=== PATIENT | male | born 1945 | race Caucasian/White ===

== ENCOUNTER → 2018-03-11 | Outpatient (CLI) | payer MEDICARE | END | disposition home or self-care (01) | LOC: CFH 10:12 | PROVIDERS: ATTEND Nurse Practitioner Family | DX: M19.012 Primary osteoarthritis, left shoulder (principal); M94.212 Chondromalacia, left shoulder; M25.712 Osteophyte, left shoulder; M25.412 Effusion, left shoulder ==

== ENCOUNTER 2019-02-26 21:38 | Inpatient (IN) | payer MEDICARE ==
[~2019-02-26] VITALS: Ht 182.9 cm; Wt 90.8 kg
[2019-02-26 22:26] LABS: BASOPHILS # (AUTO) 0.02 x10^3/uL (0-0.1); BASOPHILS % (AUTO) 0 % (0-1); EOSINOPHILS # (AUTO) 0.08 x10^3/uL (0-0.4); EOSINOPHILS % (AUTO) 1 % (1-7); LYMPHOCYTES # (AUTO) 1.36 x10^3/uL (1-3.4); LYMPHOCYTES % (AUTO) 23 % (22-44); MD NO; MEAN CORPUSCULAR HEMOGLOBIN 32.1 pg (27.5-34.5); MEAN CORPUSCULAR HGB CONC 33.8 g/dL (33.2-36.2); MEAN CORPUSCULAR VOLUME 94.8 fL (81-97); MEAN PLATELET VOLUME 7.2 fL (7.4-10.4); MONOCYTES # (AUTO) 0.58 x10^3/uL (0.2-0.8); MONOCYTES % (AUTO) 10 % (2-9); NEUTROPHILS % (AUTO) 65 % (42-75); PLATELET COUNT 325 x10^3/uL (130-400); RED BLOOD COUNT 4.75 x10^6/uL (4.38-5.82); RED CELL DISTRIBUTION WIDTH 13.3 % (9.4-14.8)
[2019-02-26] MEDS ORDERED: ASPIRIN 81 MG TABLET CHEW ONE (22:30)
[2019-02-26] MEDS ORDERED: ASPIRIN 81 MG TABLET CHEW PO ONE (22:30)
[2019-02-26 22:37] LABS: ALBUMIN 3.6 g/dL (3.4-5.0); ANION GAP 8 mmol/L (5-15); CALCIUM 9.2 mg/dL (8.5-10.1); CHLORIDE 104 mmol/L (98-107)
[2019-02-26 22:41] LABS: TROPONIN I < 0.015 ng/mL (0.000-0.045)
[2019-02-26 22:57] LABS: D-DIMER 0.37 ug/mlFEU (0.00-0.52); INTERNATIONAL NORMALIZED RATIO 0.94 (0.93-1.1); PROTHROMBIN TIME 9.9 Seconds (9.6-11.5)
--- NOTE | 2019-02-26 23:47 | NUR ---
PT RESTING WITH EYES CLOSED. MONITOR IN PLACE.
[2019-02-27] MEDS ORDERED: SODIUM CHLORIDE 0.9% 1,000 ML IV SCH (00:15)
[2019-02-27] MEDS ORDERED: PROMETHAZINE 25 MG/ML, 1ML IM PRN (00:30)
[2019-02-27] MEDS ORDERED: NITROGLYCERIN 0.4 MG BOTTLE (25 TABS) SL PRN (00:30)
[2019-02-27] MEDS ORDERED: OXYcodone IR 5MG TABLET PO PRN (00:30)
[2019-02-27] MEDS ORDERED: ACETAMINOPHEN 325 MG TABLET PO PRN ×2 (00:30→09:30)
[2019-02-27] MEDS ORDERED: ONDANSETRON 2MG/ML, 2ML IVPush PRN (00:30)
[2019-02-27] MEDS ORDERED: POLYETHYLENE GLYCOL 17 GM PACKET PO PRN (00:30)
[2019-02-27] MEDS ORDERED: morphine SULFATE 10 MG/ML, 1ML IVPush PRN (00:30)
[2019-02-27] MEDS ORDERED: DOCUSATE 100 MG CAPSULE PO PRN (00:30)
[2019-02-27] MEDS: HEPARIN 5,000 UNITS/ML, 1ML SQ SCH ×2 (00:30→10:03)
[2019-02-27] MEDS ORDERED: ONDANSETRON ODT 4 MG PO PRN (00:30)
[2019-02-27] MEDS ORDERED: hydrALAzine 20 MG/ML, 1ML IVPush PRN (00:30)
[2019-02-27] MEDS ORDERED: BISACODYL 10 MG SUPP PR PRN (00:30)
[2019-02-27 01:23] LABS: FREE T4 (FREE THYROXINE) 0.97 ng/dL (0.76-1.46); TROPONIN I < 0.015 ng/mL (0.000-0.045)
--- NOTE | 2019-02-27 01:37 | NUR ---
PT TRANSFERED INTO A HOSPITAL BED FOR PT COMFORT. PT RESTING IN BED WITH NO NEEDS OR WANTS AT THIS TIME.
[2019-02-27] MEDS ORDERED: HEPARIN 5,000 UNITS/ML, 1ML ONE (01:43)
--- NOTE | 2019-02-27 02:11 | NUR ---
PT RESTING WITH EYES CLOSED. MONITOR IN PLACE.
[2019-02-27] MEDS ORDERED: LEVO125T PO (03:17)
[2019-02-27] MEDS ORDERED: LISI-170 PO (03:18)
[2019-02-27 03:38] VITALS: BP 132/79
[2019-02-27 04:13] LABS: MICROSCOPIC NOT IND
[2019-02-27 04:15] LABS: CULTURE INDICATED? NO
[2019-02-27] MEDS ORDERED: AMLO5TAB10 PO (04:22)
[2019-02-27] MEDS ORDERED: LISI40TA PO (04:22)
[2019-02-27 05:07] LABS: BASOPHILS # (AUTO) 0.03 x10^3/uL (0-0.1); BASOPHILS % (AUTO) 1 % (0-1); EOSINOPHILS # (AUTO) 0.14 x10^3/uL (0-0.4); EOSINOPHILS % (AUTO) 3 % (1-7); LYMPHOCYTES # (AUTO) 1.55 x10^3/uL (1-3.4); LYMPHOCYTES % (AUTO) 28 % (22-44); MD NO; MEAN CORPUSCULAR HEMOGLOBIN 31.6 pg (27.5-34.5); MEAN CORPUSCULAR HGB CONC 33.3 g/dL (33.2-36.2); MEAN CORPUSCULAR VOLUME 94.9 fL (81-97); MEAN PLATELET VOLUME 7.1 fL (7.4-10.4); MONOCYTES # (AUTO) 0.74 x10^3/uL (0.2-0.8); MONOCYTES % (AUTO) 13 % (2-9); NEUTROPHILS # (AUTO) 3.09 x10^3/uL (1.8-6.8); NEUTROPHILS % (AUTO) 56 % (42-75); PLATELET COUNT 276 x10^3/uL (130-400); RED BLOOD COUNT 4.11 x10^6/uL (4.38-5.82); RED CELL DISTRIBUTION WIDTH 13.5 % (9.4-14.8)
[2019-02-27 05:08] LABS: ANION GAP 6 mmol/L (5-15); CALCIUM 8.7 mg/dL (8.5-10.1); CHLORIDE 109 mmol/L (98-107)
[2019-02-27 05:12] LABS: ALANINE AMINOTRANSFERASE 36 U/L (12-78); ALKALINE PHOSPHATASE 131 U/L (45-117); BILIRUBIN,TOTAL 0.2 mg/dL (0.2-1.0); CHOL/HDL RATIO 3.4; CHOLESTEROL, TOTAL 180 mg/dL (140-239); CREATININE 1.26 mg/dL (0.7-1.3); HDL CHOL % 29 % (26-37); HDL CHOLESTEROL (DIRECT) 53 mg/dL (40-60); LDL CHOLESTEROL,CALCULATED 105 mg/dL (54-169); TOTAL PROTEIN 6.5 g/dL (6.4-8.2); TRIGLYCERIDES 109 mg/dL (50-200); TROPONIN I < 0.015 ng/mL (0.000-0.045); VLDL CHOLESTEROL 22 mg/dL (0-25)
[2019-02-27] MEDS ORDERED: LEVOTHYROXINE 125 MCG TABLET PO SCH (06:00)
[2019-02-27] MEDS ORDERED: ASPIRIN 325 MG TABLET EC PO SCH (06:00)
[2019-02-27] MEDS ORDERED: REGADENOSON 0.4 MG/5 ML SYRINGE ONE (08:38)
[2019-02-27] MEDS ORDERED: LISINOPRIL 40 MG TABLET PO SCH (09:00)
[2019-02-27 10:15] VITALS: BP 128/79
[2019-02-27 13:15] VITALS: BP 150/83
[2019-02-28] MEDS ORDERED: SODIUM CHLORIDE 0.9% 1,000 ML IV SCH (00:15)
== END 2019-02-27 14:22 | disposition home or self-care (01) | DRG 308 ==
LOC: ED 22:53 → EDIP 23:37 → 5SO 02-27 03:29
PROVIDERS: ADMIT Internal Medicine; ATTEND Internal Medicine
DX: R00.1 Bradycardia, unspecified (principal); N17.0 Acute kidney failure with tubular necrosis; E03.9 Hypothyroidism, unspecified; I10 Essential (primary) hypertension; W18.39XA Other fall on same level, initial encounter; E07.9 Disorder of thyroid, unspecified; M79.606 Pain in leg, unspecified; Y93.89 Activity, other specified; Y92.098 Other place in other non-institutional residence as the place of occurrence of the external cause; Z82.3 Family history of stroke; Y99.8 Other external cause status
CPT/HCPCS: 36415; 70450; 71045; 78452; 80048; 80053; 80061; 81003; 82040; 83036; 83735; 83880; 84439; 84443; 84484; 85025; 85379; 85610; 85730; 93005; 93017; 93306; 93880; 99285; J1644; J2785; A9502; C9898; J7030

== ENCOUNTER → 2020-03-28 | Outpatient (CLI) | payer MEDICARE ==
[~2020-03-28] MED LIST: AMLO-210 PO; LEVO125T PO; LISI-170 PO; LISI40TA9 PO; OMNIPAQUE 350 MG/ML, 100ML BOTTLE ONE
== END | disposition home or self-care (01) ==
LOC: RAD 09:43
PROVIDERS: ATTEND Family Medicine
DX: K57.30 Diverticulosis of large intestine without perforation or abscess without bleeding (principal); K57.32 Diverticulitis of large intestine without perforation or abscess without bleeding; N28.1 Cyst of kidney, acquired; N20.0 Calculus of kidney
CPT/HCPCS: 74177; Q9967